=== PATIENT | female | born 1975 | race Caucasian/White ===

== ENCOUNTER 2021-12-30 11:10 | Inpatient (IN) | payer MEDICAID, OTHER ==
[2021-12-30] MEDS ORDERED: ACETAMINOPHEN TAB 325 MG TAB PO PRN (12:02)
[2021-12-30] MEDS ORDERED: MAGNESIUM HYDROXIDE 2,400 MG/10 ML CUP PO PRN (12:02)
[2021-12-30] MEDS ORDERED: HALOPERIDOL LACTATE 5 MG/ML 1 ML VIAL IM PRN (12:02)
[2021-12-30] MEDS ORDERED: LORazepam 1 MG TAB PO PRN ×2 (12:02)
[2021-12-30] MEDS ORDERED: MAG HYDROX/AL HYDROX/SIMETH 30 ML CUP PO PRN (12:02)
[2021-12-30 15:47] VITALS: RESP 16; TEMP 97.1
[2021-12-30 15:51] VITALS: BP 97/59; PULSE 67
[2021-12-30] MEDS ORDERED: cloNIDine HCL 0.1 MG TAB PO SCH (16:00)
[2021-12-30] MEDS ORDERED: GABAPENTIN 300 MG CAP PO SCH (16:00)
[2021-12-30] MEDS ORDERED: TOPIRAMATE 100 MG TAB PO SCH (21:00)
[2021-12-30] MEDS ORDERED: busPIRone HCl 5 MG TAB PO SCH (21:00)
[2021-12-30] MEDS ORDERED: OLANZapine 10 MG TAB PO SCH (21:00)
[2021-12-31] MEDS ORDERED: LEVOTHYROXINE 100 MCG TAB PO SCH (06:30)
[2021-12-31] MEDS ORDERED: PANTOPRAZOLE 40 MG TABLET PO SCH (07:30)
[2021-12-31] MEDS ORDERED: NICOTINE 14MG/24HR PATCH TRANSDERM SCH (09:00)
== END 2021-12-30 19:35 | disposition short-term general hospital (02) | DRG 885 ==
LOC: 3MHU 15:07
PROVIDERS: ADMIT Psychiatry & Neurology Psychiatry; ATTEND Psychiatry & Neurology Psychiatry
DX: F33.2 Major depressive disorder, recurrent severe without psychotic features (principal); R45.851 Suicidal ideations; L03.116 Cellulitis of left lower limb; F17.200 Nicotine dependence, unspecified, uncomplicated; F60.89 Other specific personality disorders; I95.9 Hypotension, unspecified

== ENCOUNTER 2021-12-30 16:52 | Observation (INO) | payer OTHER ==
[2021-12-30] MEDS ORDERED: NALOXONE 0.4 MG/ML 1 ML VIAL IV PRN (20:29)
[2021-12-30] MEDS ORDERED: SODIUM CHLORIDE 0.9% 1,000 ML IV ONE (20:30)
[2021-12-30 21:37] LABS: HGB 11.5 gm/dL (11.4-16.0); Hypochromasia Marked; MCH 26.9 pg (25.0-35.0); MCHC 29.6 g/dL (31.0-37.0); MCV 91.1 fL (80.0-100.0); Mean Platelet Volume 9.6; Platelet Count 265 k/uL (150-450); RBC 4.28 m/uL (3.80-5.40); RDW 13.4 % (11.5-15.5); WBC 8.5 k/uL (3.8-10.6)
[2021-12-30 21:59] LABS: ALT 23 U/L (4-34); AST 35 U/L (14-36); African American GFR (CKD) >90 (>60 ml/min/1.73 sqM); Albumin 3.2 g/dL (3.5-5.0); Albumin/Globulin Ratio 0.8; Alkaline Phosphatase 78 U/L (38-126); Anion Gap 10 mmol/L; Blood Urea Nitrogen 14 mg/dL (7-17); Calcium 8.8 mg/dL (8.4-10.2); Carbon Dioxide 17 mmol/L (22-30); Chloride 111 mmol/L (98-107); Globulin 3.8 g/dL; Glucose 134 mg/dL (74-99); Magnesium 1.8 mg/dL (1.6-2.3); Non-African American GFR(CKD) >90 (>60 ml/min/1.73 sqM); Potassium 4.2 mmol/L (3.5-5.1); Sodium 138 mmol/L (137-145); Total Bilirubin 0.2 mg/dL (0.2-1.3)
[2021-12-30] MEDS ORDERED: PIPERACILLIN-TAZOBACTAM 3.375 GM in SODIUM CHLORIDE 0.9% 100 ML IVPB STA (22:13)
[2021-12-30] MEDS ORDERED: VANCOMYCIN IV PER PHARMACY 1 EACH MISC MISCELLANE PRN (23:21)
[2021-12-30] MEDS ORDERED: VANCOMYCIN 1,000 MG in SODIUM CHLORIDE 0.9% 250 ML IVPB STA (23:26)
[2021-12-30] MEDS: SODIUM CHLORIDE 0.9% 1,000 ML IV SCH (23:30)
--- NOTE | 2021-12-30 23:56 | XR ---
EXAMINATION TYPE: XR ankle complete LT DATE OF EXAM: 12/30/2021 COMPARISON: NONE HISTORY: Cellulitis TECHNIQUE: 3 views FINDINGS: Ankle mortise is anatomic. I see no fracture nor dislocation. Joint spaces are normal. IMPRESSION: Negative left ankle exam.
[2021-12-31 00:38] LABS: Amphetamine Screen,Urine Not Detected (NotDetected); Barbiturate Screen,Urine Not Detected (NotDetected); Benzodiazepines Screen,Urine Detected (NotDetected); Cocaine Screen,Urine Not Detected (NotDetected); Methadone Screen, Urine Not Detected (NotDetected); Opiate Screen,Urine Not Detected (NotDetected); Oxycodone Screen, Urine Not Detected (NotDetected); Phencyclidine Screen,Urine Not Detected (NotDetected); Tricyclic Antidepressant,Urine Not Detected (NotDetected); Urn Cannabinoid Scrn Not Detected (NotDetected)
--- NOTE | 2021-12-31 01:12 | P.HPIM ---
History of Present Illness H&P Date: 12/30/21 Patient is a 46-year-old female with a PMH of polysubstance abuse who had initially been taken to the [facility] by police on 12/25 for suicidal ideation, which she expressed as she was being evicted from her friends place. The patient was subsequently transferred to [facility] unit where upon arrival at the unit, she was noted to be hypotensive with left ankle erythema. She was subsequently transferred to the medicine unit where she was seen and evaluated in the presence of a sitter. The patient reports long-standing history of IV substance abuse including methamphetamines and heroin. She reports left leg pain and swelling over the past 1-2 days. She reports having sprained her ankle 2 days ago which she believes triggered her symptoms. She reports injecting drugs in and around her left ankle. She denies experiencing fevers or chills. Also denied cough or chest discomfort. Patient reports a prior history of multiple skin infections including possibly MRSA. Laboratory evaluation was remarkable for CO2 of 17. Left ankle x-ray was unremarkable. Review of systems: Pertinent positives and negatives as discussed in HPI, a complete review of systems was performed and all other systems are negative. Physical examination: General: Chronically ill-appearing disheveled female, no distress, appears significantly older than stated age, normal weight Derm: Left lower extremity erythema and swelling from ankle to mid cerda, no palpable collection noted, Needle track tejeda across all extremities with multiple scars, no unusual ecchymoses, warm, dry Head: atraumatic, normocephalic, symmetric Eyes: EOMI, no lid lag, anicteric sclera, pupils equal round reactive to light ENT: Nose and ears atraumatic, no thrush, no pharyngeal erythema Neck: No thyromegaly, no cervical lymphadenopathy, trachea midline, supple Mouth: no lip lesion, mucus membranes moist Cardiovascular: S1S2 reg, no murmur, positive posterior tibial pulse bilateral, no edema, capillary refill less than 2 seconds Lungs: CTA bilateral, no rhonchi, no rales , no accessory muscle use Abdominal: soft, nontender to palpation, no guarding, no appreciable organomegaly, normal bowel sounds Ext: no gross muscle atrophy, muscle strength 5 out of 5 in all 4 extremities grossly, no contractures, Neuro: CN II-XI grossly intact, light touch intact all 4 extremities, finger to nose within normal limits, Psych: Alert, oriented, appropriate affect Assessment/plan Left lower extremity cellulitis in setting of IV substance abuse -Continue with vancomycin and Zosyn -Follow up blood cultures -Involved area marked Polysubstance abuse -Strongly advised on importance of cessation -Monitor for signs of withdrawal Depression with suicidal ideation -Continue with 1-1 suicide precautions -Psychiatry consult DVT prophylaxis -Heparin subcu The patient is admitted with an anticipated greater than 2 midnight stay for evaluation of left lower extremity cellulitis CODE STATUS: Full Code Discussed with: Patient Anticipated discharge date: 01/[address]: Home Past Medical History - Past Family History Mother Family Medical History: Cancer Medications and Allergies Allergies Allergy/AdvReac Type Severity Reaction Status Date / Time ciprofloxacin Allergy Unknown Verified 12/30/21 12:01 clindamycin Allergy Unknown Verified 12/30/21 12:01 morphine Allergy Unknown Verified 12/30/21 12:01 sulfamethoxazole Allergy Unknown Verified 12/30/21 12:01 [From Bactrim] trimethoprim [From Bactrim] Allergy Unknown Verified 12/30/21 12:01 Physical Exam Vitals: Vital Signs Temp Pulse Resp BP Pulse Ox 12/30/21 20:32 97.8 F 78 18 98/62 96 Intake and Output 12/30/21 12/30/21 12/31/21 14:59 22:59 06:59 Other: Weight 56.699 kg Results CBC & Chem 7: 12/30/21 21:15 12/30/21 21:15 Labs: Abnormal Lab Results - Last 24 Hours (Table) 12/30/21 12/30/21 Range/Units 21:15 21:15 MCHC 29.6 L (31.0-37.0) g/dL Chloride 111 H (98-107) mmol/L Carbon Dioxide 17 L (22-30) mmol/L Glucose 134 H (74-99) mg/dL Albumin 3.2 L (3.5-5.0) g/dL
[2021-12-31] MEDS ORDERED: SODIUM CHLORIDE 0.9% 1,000 ML IV ONE (01:59)
[2021-12-31] MEDS: SODIUM CHLORIDE 0.9% 1,000 ML IV SCH ×2 (03:32→07:14)
[2021-12-31] MEDS ORDERED: PIPERACILLIN-TAZOBACTAM 3.375 GM in SODIUM CHLORIDE 0.9% 100 ML IVPB SCH (08:00)
[2021-12-31] MEDS ORDERED: HEPARIN SODIUM,PORCINE/PF 5,000 UNIT/0.5 ML SYRINGE SQ SCH (08:00)
[2021-12-31 08:11] VITALS: RESP 18
[2021-12-31] MEDS ORDERED: VANCOMYCIN 1,000 MG in SODIUM CHLORIDE 0.9% 250 ML IVPB SCH (09:00)
--- NOTE | 2021-12-31 12:16 | P.PN ---
Subjective Progress Note Date: 12/31/21 Patient is doing okay today. Complaining of withdrawal symptoms from fentanyl. Also complaining of pain in the lower extremity. Gen: awake, alert HEENT: normocephalic, atraumatic, good hearing acuity, moist mucous membranes Resp: good air exchange, breathing comfortably with no accessory muscle use CVS: good distal perfusion x 4, GI: soft, NTTP, ND : no SPT, no CVAT, miranda catheter not present MSK: no pitting edema, no clubbing, area of swelling, erythema in the left lower extremity Neuro: non-focal, moving all extremities Psych: cooperative, euthymic mood Assessment/plan: Left lower extremity cellulitis in setting of IV substance abuse -Continue with vancomycin and Zosyn -Follow up blood cultures, can discharge patient on clindamycin if no growth in the blood by tomorrow -Involved area marked Polysubstance abuse -Strongly advised on importance of cessation -Monitor for signs of withdrawal Depression with suicidal ideation -Continue with 1-1 suicide precautions -Psychiatry consult DVT prophylaxis -Heparin subcu The patient is admitted with an anticipated greater than 2 midnight stay for evaluation of left lower extremity cellulitis CODE STATUS: Full Code Discussed with: Patient Anticipated discharge date: 01/[address]: Home Objective - Vital Signs Vital signs: Vital Signs Temp 98.9 F 12/31/21 08:00 Pulse 64 12/31/21 08:00 Resp 18 12/31/21 08:00 BP 91/56 12/31/21 08:00 Pulse Ox 97 12/31/21 08:00 FiO2 Intake & Output 12/30/21 12/31/21 12/31/21 18:59 06:59 18:59 Weight 56.699 kg Other: Voiding Method Toilet # Voids 4 # Bowel Movements 1 - Labs CBC & Chem 7: 12/30/21 21:15 12/30/21 21:15 Labs: Abnormal Lab Results - Last 24 Hours (Table) 12/30/21 12/30/21 12/30/21 Range/Units 21:15 21:15 23:45 MCHC 29.6 L (31.0-37.0) g/dL Chloride 111 H (98-107) mmol/L Carbon Dioxide 17 L (22-30) mmol/L Glucose 134 H (74-99) mg/dL Albumin 3.2 L (3.5-5.0) g/dL U Benzodiazepines Scrn Detected H (NotDetected)
[2021-12-31] MEDS ORDERED: LOPERAMIDE 2 MG CAP PO PRN (13:44)
[2021-12-31] MEDS ORDERED: LORazepam 0.5 MG TAB PO PRN (13:44)
[2021-12-31] MEDS ORDERED: cloNIDine HCL 0.1 MG TAB PO PRN (13:44)
[2021-12-31] MEDS ORDERED: DICYCLOMINE 20 MG TAB PO PRN (13:44)
[2021-12-31] MEDS ORDERED: hydrOXYzine pamoate 25 MG CAP PO PRN (13:45)
--- NOTE | 2021-12-31 13:55 | P.CN ---
Psychiatric Consult - . Consult date: 12/31/21 Consult:: 12/31/21 12:49 IDENTIFYING DATA: This patient is a 46-year-old female with a history of polysubstance abuse who currently lives with her friend and is and has 4 kids. She is currently unemployed. REASON FOR REFERRAL: Psychiatry was consulted for depression HISTORY OF PRESENT ILLNESS: The patient presented to the hospital it was clear in [place] initially after being brought in by the police. Patient apparently w as suicidal as she was "being evicted" from her friend's place and was at [facility] before being transferred to the mental health unit in [place]. When patient arrived to the mental health unit yesterday, she was found to be hypotensive and also had left ankle infection and was admitted medically for cellulitis. Patient is currently being treated with antibiotics. Patient's urine was positive for benzodiazepines. Patient was seen today at the bedside and agreeable speech regular. Patient was fairly calm and directable. She states that she "messed up" and claims that she "lied to the police". She states that she lied to them about being suicidal and states that the reason why she did that was because "if they saw the amount of narcotics and drugs that I had then I would go to residential, instead they brought me to the hospital". She claims that she does follow up with a psychiatrist for depression and anxiety in [place] and take Zyprexa Topamax and BuSpar. She states that she was using a significant amount of drugs including methamphetamine and fentanyl. She states she is about $200 per day worth of drugs. She states that she is now having withdrawal symptoms however her last use was 1 week ago. She claims that her sleep and appetite are fair. She claims that she does have some diarrhea stomachaches and was requesting Suboxone or methadone for her withdrawal s ymptoms. Patient states that she is willing to go to rehab in [place]. At this time patient denies any current suicidal or homical ideations, intent or plan. Patient denies any auditory, visual hallucinations and denies any paranoia or delusions. Patients admits to using crack, Adderall, cigarettes, fentanyl and methamphetamine. PAST PSYCHIATRIC HISTORY: Patient has a a history of depression anxiety and polysubstance abuse. Patient is currently on Zyprexa, BuSpar and Topamax. She states that she has had several psychiatric admissions in the past and last was admitted to [facility]. She states that she follows up with her psychiatrist in [place]. She claims that she had 1 overdose suicide attempt in 2007 after her daughter was taken away from her. PAST MEDICAL HISTORY: As per medicine H&P ALLERGIES: as per EMR. CHEMICAL DEPENDENCY HISTORY: as per HPI. FAMILY PSYCHIATRIC/SUBSTANCE USE HISTORY: States that her mother has depression SOCIAL HISTORY: Patient was born and raised in [place] and [place]. She states that she completed high school and did some college. 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 She claims that she is has 4 kids, she currently lives with a friend. She also states that she's been to residential multiple times in the past for mainly drug-related charges. MENTAL STATUS EXAM: General Appearance: Patient appears to be thin, older than stated age is alert, pleasant, and attempts to be cooperative. Patient appears to have fair hygiene and grooming wearing hospital gown with fair eye contact. Behavior: Patient is calmly lying in bed without any agitated behavior. Attempts to be cooperative. Restless. Speech: Patient's speech is fluent and nonpressured. Mood/Affect: Patient reports their mood is "fine", affect is congruent and constricted Suicidality/Homicidality: Patient denies having any suicidal or homicidal ideation intent or plan. Perceptions: Patient denies any visual hallucinations and denies any auditory hallucinations Though content/process: There is no evidence of any delusional thought content and thought process is linear and goal-directed. Focused on medications. Memory and concentration: AOX3, grossly intact for the purposes of this session. Can spell "WORLD" backwards Judgment and insight: Chronically poor/superficial IMPRESSIONS: Polysubstance abuse, cocaine, methamphetamine, opioids, stimulants Nicotine dependence History of depression and anxiety cluster B personality PLAN: -At this time patient DOES NOT meet criteria for inpatient psychiatric admission. -Patient claims that she lied about being suicidal to avoid going to residential and face more charges. Patient is directable, and going through withdrawal from substances. She claims that she is agreeable to go to rehab upon discharge. -Would recommend the following medication changes/additions: Restarted BuSpar 15 mg twice a day for anxiety, Vistaril when necessary for anxiety. Clonidine, loperamide, dicyclomine when necessary for opioid withdrawal. -Can discontinue 1:1 sitter at this time as patient is not currently an imminent threat to themselves and patient contracted for safety. -picking table worker to provide patient with outpatient mental health/psychiatry resources for appropriate follow up upon discharge -T[place]man spoke with patient about substance abuse and the harmful effects on medical and mental health, patient verbally understood and agreed. -picking table worker to provide patient substance use treatment resources including AA/NA meetings in the community. -picking table worker to provide patient with access line number to call for inpatient substance rehab -Communicated plan to patient's nurse -Psychiatry will sign off at this time -Please contact with any questions. 12/31/21 13:45
[2021-12-31 14:19] VITALS: BP 94/62; PULSE 74; TEMP 99.1
[2021-12-31] MEDS ORDERED: CLINDAMYCIN 150 MG CAP PO SCH (15:00)
--- NOTE | 2021-12-31 16:34 | P.DS ---
Providers Date of admission: 12/30/21 19:50 Expected date of discharge: 12/31/21 Attending physician: Tyler Russell MD Consults: 12/31/21 01:10 Consult Physician Urgent Consulting Provider: Osmar Osborne Consult Reason/Comments: depression Do you want consulting provider notified?: Yes Primary care physician: Tyler Russell MD Hospital Course: Left lower extremity cellulitis in setting of IV substance abuse Polysubstance abuse Depression with suicidal ideation Patient was admitted for SI and cellulitis. She was treated with IV vancomycin and zosyn and pending clearance of BCx prior to d/c on oral abx, however, prior to clearance, pt left AMA. She was cleared by psychiatry team for her SI. She did have ankle XR while in house which was negative for osteomyelitis. Pt left without prescription for abx. See same day progress note for phx and more details about stay. Patient Condition at Discharge: Fair Plan - Discharge Summary Discharge Rx Participant: No Discharge Disposition: Left Against Medical Advice
== END 2021-12-31 15:22 | disposition left against medical advice (07) ==
LOC: INTOOBSV 19:50 → 4SSUR 19:50 → UNDODISIN 12-31 15:22
PROVIDERS: ADMIT Hospitalist; ATTEND Hospitalist
DX: L03.116 Cellulitis of left lower limb (principal); R45.851 Suicidal ideations; I95.9 Hypotension, unspecified; F11.10 Opioid abuse, uncomplicated; F15.10 Other stimulant abuse, uncomplicated; F60.89 Other specific personality disorders; F32.A Depression, unspecified; F41.9 Anxiety disorder, unspecified; S93.402A Sprain of unspecified ligament of left ankle, initial encounter; Z88.1 Allergy status to other antibiotic agents; Z88.2 Allergy status to sulfonamides; Z88.5 Allergy status to narcotic agent; Z53.29 Procedure and treatment not carried out because of patient's decision for other reasons; Z28.310 Unvaccinated for COVID-19; Z56.0 Unemployment, unspecified; Z91.51 Personal history of suicidal behavior; Z80.9 Family history of malignant neoplasm, unspecified; Z81.8 Family history of other mental and behavioral disorders
CPT/HCPCS: 96365; 96366; 96367; 80053; 83605; 83735; 85027; 87040; 80306; 73610; G0378 ×2; G0379; J2543; J3370